=== PATIENT | female | born 1955 | race Caucasian/White ===

== ENCOUNTER 2024-02-01 16:04 | Outpatient (CLI) | payer MEDICARE | END 2024-02-01 16:05 | disposition home or self-care (01) | LOC: CSHRAD 16:04 | PROVIDERS: ATTEND Internal Medicine Cardiovascular Disease | DX: Z95.9 Presence of cardiac and vascular implant and graft, unspecified (principal); I50.22 Chronic systolic (congestive) heart failure; T82.119A Breakdown (mechanical) of unspecified cardiac electronic device, initial encounter | CPT/HCPCS: 71046 ==